=== PATIENT | male | born 1950 | race Caucasian/White ===

== ENCOUNTER → 2016-06-13 | Outpatient (CLI) | payer MEDICARE, OTHER ==
[~2016-06-13] MED LIST: CANA300T PO; CHOL200016 PO; DSS100 PO; GABA-531 PO; GUAI600T35 PO; HYDR25TA PO; INSLAN SQ; INSNOV SQ; LISI40TA4 PO; METF10002 PO; SIMV-261 PO; SITA100 PO; TRAM50TA4 PO; VALS160T2 PO
[2016-06-13 12:35] LABS: ALBUMIN 3.9 g/dL (3.4-5.0); BILIRUBIN,TOTAL 0.5 mg/dL (0.1-1.0); TOTAL PROTEIN, SERUM 7.5 g/dL (6.4-8.2)
[2016-06-13 12:42] LABS: BILIRUBIN,DIRECT 0.1 mg/dL (0.00-0.20)
[2016-06-14 13:15] LABS: HEPATITIS Bs ANTIGEN SCREEN P Negative (Negative); HEPATITIS C AB SCREEN <0.1 s/co ratio (0.0-0.9)
== END | disposition home or self-care (01) ==
LOC: LABPV 09:04
PROVIDERS: ATTEND Family Medicine
DX: R94.5 Abnormal results of liver function studies (principal)
CPT/HCPCS: 80074

== ENCOUNTER → 2016-06-19 | Outpatient (CLI) | payer MEDICARE, OTHER | END | disposition home or self-care (01) | LOC: RADMN 12:38 | PROVIDERS: ATTEND Family Medicine | DX: I67.2 Cerebral atherosclerosis (principal); J32.8 Other chronic sinusitis; I65.29 Occlusion and stenosis of unspecified carotid artery | CPT/HCPCS: 70450 ==

== ENCOUNTER 2016-07-15 11:54 | Emergency (ER) | payer MEDICARE, OTHER ==
[~2016-07-15] VITALS: Ht 167.6 cm; Wt 99.1 kg
[~2016-07-15 11:54] MED LIST changes: -GABA-531 PO; -INSNOV SQ; -SIMV-261 PO; +SIMV40 PO; -VALS160T2 PO
[2016-07-15 12:07] LABS: GLUCOSE,POINT OF CARE 85 MG/DL (70-110)
[2016-07-15 12:32] LABS: APPEARANCE,URINE CLEAR (CLEAR); GLUCOSE, URINE (UA) >=1000 mg/dL (NEGATIVE); KETONES,URINE NEGATIVE (NEGATIVE); LEUKOCYTE ESTERASE ,URINE NEGATIVE (NEGATIVE); OCCULT BLOOD,URINE NEGATIVE (NEGATIVE); PH,URINE 6.5 (5.0-8.0); PROTEIN,URINE NEGATIVE (NEGATIVE)
[2016-07-15 12:36] LABS: ADD UA MICROSCOPIC YES
[2016-07-15 12:39] LABS: BASOPHILS % (AUTO) 0.4 % (0.0-2.0); EOSINOPHILS % (AUTO) 5.3 % (1.0-6.0); HEMATOCRIT 51.8 % (41-53); HEMOGLOBIN 17.1 g/dL (13.5-17.5); LYMPHOCYTES # (AUTO) 1.4 K/uL (1.0-4.8); LYMPHOCYTES % (AUTO) 19.8 % (22.0-44.0); MEAN CORPUSCULAR HEMOGLOBIN 29.3 pg (26.0-34.0); MEAN CORPUSCULAR VOLUME 89 fL (80-100); MONOCYTES # (AUTO) 0.7 K/uL (0.1-1.0); NEUTROPHILS # (AUTO) 4.4 K/uL (1.8-7.7); NEUTROPHILS % (AUTO) 64.5 % (40.0-70.0); PLATELET COUNT (AUTO) 227 K/uL (150-450); RED BLOOD CELL COUNT(AUTO) 5.83 MIL/uL (4.50-5.90); RED CELL DISTRIBUTION WIDTH 14.4 % (11.5-14.5); WHITE BLOOD COUNT (AUTO) 6.8 K/uL (4.5-11.0)
[2016-07-15 12:40] LABS: RBC,URINE None Seen /HPF (0-2); SQUAMOUS EPITHELIAL CELL,UR Rare /LPF (None Seen); WBC,URINE None Seen /HPF (0-5)
[2016-07-15] MEDS ORDERED: ONDANSETRON HCL 4 MG/2 ML VIAL IVP ONE (12:45)
[2016-07-15] MEDS ORDERED: KETOROLAC TROMETHAMINE 30 MG/ML VIAL IVP ONE (12:45)
[2016-07-15 12:47] LABS: CALCIUM, TOTAL 8.9 mg/dL (8.8-10.5); CREATININE 1.5 mg/dL (0.60-1.30); POTASSIUM 4.2 mmol/L (3.5-5.1)
[2016-07-15 12:53] LABS: ALBUMIN 4.2 g/dL (3.4-5.0); BILIRUBIN,TOTAL 1.1 mg/dL (0.1-1.0)
[2016-07-15 15:06] VITALS: BP 149/76
== END 2016-07-15 15:20 | disposition home or self-care (01) ==
LOC: EMS 11:56
DX: K80.70 Calculus of gallbladder and bile duct without cholecystitis without obstruction (principal); E11.9 Type 2 diabetes mellitus without complications; E78.00 Pure hypercholesterolemia, unspecified; I11.9 Hypertensive heart disease without heart failure; I48.91 Unspecified atrial fibrillation; J45.909 Unspecified asthma, uncomplicated; Z79.4 Long term (current) use of insulin
CPT/HCPCS: 36415; 74022; 76700; 80053; 81001; 82962; 83690; 84484; 85025; 93005; 96374; 96375; 99285; J1885; J2405

== ENCOUNTER 2016-08-29 05:15 | Day surgery (SDC) | payer MEDICARE, OTHER ==
[~2016-08-29] VITALS: Ht 165.1 cm; Wt 95.0 kg
[~2016-08-29 05:15] MED LIST changes: -DSS100 PO; +GABA-531 PO; -GUAI600T35 PO; +INSNOV SQ; -LISI40TA4 PO; -METF10002 PO; +VALS160T2 PO
[2016-08-29] MEDS ORDERED: RINGERS SOLUTION,LACTATED 1,000 ML IV ONE ×2 (05:46→06:00)
[2016-08-29 06:36] LABS: GLUCOSE,POINT OF CARE 139 MG/DL (70-110)
[2016-08-29] MEDS ORDERED: SODIUM CL IRRIG SOLN BAG 3,000 ML IRRIG ONE (07:06)
[2016-08-29] MEDS ORDERED: BUPIVACAINE HCL/PF 0.25% 30 ML VIAL ONE (07:06)
[2016-08-29] MEDS ORDERED: GUM MASTIC/STORAX/MSAL/ALCOHOL LIQUID 0.67 ML VIAL TP ONE (07:06)
[2016-08-29] MEDS ORDERED: CefoTEtan DISOD 1 GM/DEXTROSE 50 ML IV ONE (07:30)
[2016-08-29] MEDS: BUPIVACAINE 0.25%/EPI 1:200,000/PF 10 ML VIAL ONE ×2 (08:45→09:02)
[2016-08-29] MEDS ORDERED: FentaNYL CITRATE-PF 100 MCG/2 ML VIAL IVP PRN (09:00)
[2016-08-29] MEDS ORDERED: MEPERIDINE-PF 25 MG/ML SYRINGE IVP PRN (09:00)
[2016-08-29] MEDS ORDERED: SODIUM CHLORIDE 0.9% 1,000 ML IV ONE (09:21)
[2016-08-29] MEDS: HYDROmorphone 2 MG/ML SYRINGE IVP PRN ×4 (09:25→10:10)
[2016-08-29] MEDS ORDERED: HYDROmorphone 2 MG/ML SYRINGE ONE (09:30)
[2016-08-29] MEDS ORDERED: ONDANSETRON HCL 4 MG/2 ML VIAL IVP ONE (11:34)
[2016-08-29] MEDS ORDERED: PROPOFOL 1% 20 ML VIAL IVP ONE (11:34)
[2016-08-29] MEDS ORDERED: GLYCOPYRROLATE 0.2 MG/ML VIAL IM ONE (11:34)
[2016-08-29] MEDS ORDERED: FentaNYL CITRATE-PF 100 MCG/2 ML VIAL IVP ONE (11:34)
[2016-08-29] MEDS ORDERED: MIDAZOLAM HCL 2 MG/2 ML VIAL IVP ONE (11:34)
[2016-08-29] MEDS ORDERED: LIDOCAINE HCL/PF 2% 5 ML VIAL IM ONE (11:34)
[2016-08-29] MEDS ORDERED: METOCLOPRAMIDE HCL 5 MG/ML 2 ML VIAL IVP ONE (11:34)
[2016-08-29] MEDS ORDERED: ROCURONIUM BROMIDE 10 MG/ML 5 ML VIAL IVP ONE (11:34)
[2016-08-29] MEDS ORDERED: 0.9% SODIUM CHLORIDE 10 ML VIAL IVP ONE (11:34)
[2016-08-29] MEDS ORDERED: OXYGEN THERAPY IH SCH (20:00)
== END 2016-08-29 11:35 | disposition home or self-care (01) ==
LOC: SDS 05:15 → UNDOADMIN 05:15 → 6N 05:15 → EDSTATUS 07:30 → UNDODISIN 11:35 → SDS 11:35
PROVIDERS: ATTEND Surgery
DX: K80.12 Calculus of gallbladder with acute and chronic cholecystitis without obstruction (principal); I10 Essential (primary) hypertension; E11.9 Type 2 diabetes mellitus without complications; E78.00 Pure hypercholesterolemia, unspecified; K25.9 Gastric ulcer, unspecified as acute or chronic, without hemorrhage or perforation; K76.9 Liver disease, unspecified; E66.9 Obesity, unspecified; Z98.52 Vasectomy status; Z82.49 Family history of ischemic heart disease and other diseases of the circulatory system
CPT/HCPCS: 47562; 82962; 88304; J1170; J2250; J2405; J2704; J2765; J3010; J3490 ×5; J7030; J7120

== ENCOUNTER 2016-12-23 20:10 | Inpatient (IN) | payer MEDICARE, OTHER ==
[~2016-12-23] VITALS: Ht 167.6 cm; Wt 90.8 kg
[~2016-12-23 20:10] MED LIST changes: +SIMV-261 PO; -SIMV40 PO
[2016-12-23 20:33] LABS: APPEARANCE,URINE CLEAR (CLEAR); GLUCOSE, URINE (UA) >=1000 mg/dL (NEGATIVE); KETONES,URINE TRACE mg/dL (NEGATIVE); LEUKOCYTE ESTERASE ,URINE NEGATIVE (NEGATIVE); OCCULT BLOOD,URINE NEGATIVE (NEGATIVE); PH,URINE 7.5 (5.0-8.0); PROTEIN,URINE TRACE (NEGATIVE)
[2016-12-23 20:37] LABS: GLUCOSE,POINT OF CARE 98 MG/DL (70-110)
[2016-12-23 20:39] LABS: ADD UA MICROSCOPIC YES
[2016-12-23 20:43] LABS: RBC,URINE 0-2 /HPF (0-2); SQUAMOUS EPITHELIAL CELL,UR Rare /LPF (None Seen); WBC,URINE 0-2 /HPF (0-5)
[2016-12-23 20:48] LABS: BASOPHILS # (AUTO) 0.01 K/uL (0.00-0.20); BASOPHILS % (AUTO) 0.1 % (0.0-2.0); EOSINOPHILS # (AUTO) 0.23 K/uL (0.00-0.70); EOSINOPHILS % (AUTO) 2.74 % (1.0-6.0); HEMATOCRIT 42.6 % (41-53); HEMOGLOBIN 14.5 g/dL (13.5-17.5); LYMPHOCYTES # (AUTO) 0.8 K/uL (1.0-4.8); LYMPHOCYTES % (AUTO) 9.4 % (22.0-44.0); MEAN CORPUSCULAR HEMOGLOBIN 30.3 pg (26.0-34.0); MEAN CORPUSCULAR HGB CONC 34.1 G/dL (31.0-37.0); MEAN CORPUSCULAR VOLUME 89 fL (80-100); MONOCYTES # (AUTO) 0.8 K/uL (0.1-1.0); MONOCYTES % (AUTO) 9.7 % (2.0-9.0); NEUTROPHILS # (AUTO) 6.5 K/uL (1.8-7.7); NEUTROPHILS % (AUTO) 78.1 % (40.0-70.0); PLATELET COUNT (AUTO) 202 K/uL (150-450); RED BLOOD CELL COUNT(AUTO) 4.79 MIL/uL (4.50-5.90); RED CELL DISTRIBUTION WIDTH 15.7 % (11.5-14.5); WHITE BLOOD COUNT (AUTO) 8.4 K/uL (4.5-11.0)
[2016-12-23 20:58] LABS: CREATININE 1.39 mg/dL (0.60-1.30); POTASSIUM 4.1 mmol/L (3.5-5.1)
[2016-12-23 21:04] LABS: ALBUMIN 3.4 g/dL (3.4-5.0); BILIRUBIN,TOTAL 8.7 mg/dL (0.1-1.0); TOTAL PROTEIN, SERUM 6.9 g/dL (6.4-8.2)
[2016-12-23] MEDS ORDERED: MORPHINE SULFATE 4 MG/ML SYRINGE IVP ONE (21:15)
[2016-12-23] MEDS ORDERED: ONDANSETRON HCL 4 MG/2 ML VIAL IVP ONE (21:15)
[2016-12-23 21:16] LABS: INR 1.1 (0.9-1.1); PROTHROMBIN TIME 11.4 SEC (9.4-11.6)
[2016-12-23] MEDS ORDERED: DONNATAL/LIDOCAINE/MAALOX 55 ML BOTTLE PO ONE (23:00)
[2016-12-24 01:38] VITALS: BP 132/68
[2016-12-24] MEDS ORDERED: ZOLPIDEM TARTRATE 5 MG TABLET PO PRN (02:00)
[2016-12-24] MEDS ORDERED: MAGNESIUM HYDROXIDE SUSPENSION 30 ML UDCUP PO PRN (02:00)
[2016-12-24] MEDS ORDERED: ONDANSETRON HCL 4 MG/2 ML VIAL IVP PRN (02:00)
[2016-12-24] MEDS ORDERED: MORPHINE SULFATE 4 MG/ML SYRINGE IVP PRN (02:00)
[2016-12-24] MEDS ORDERED: DEXTROSE 50%-WATER 25 GM/50 ML SYRINGE IVP PRN (02:00)
[2016-12-24] MEDS ORDERED: MORPHINE SULFATE 2 MG/ML SYRINGE IVP PRN (02:01)
[2016-12-24 04:08] VITALS: BP 128/70
[2016-12-24 04:14] LABS: BASOPHILS # (AUTO) 0.02 K/uL (0.00-0.20); BASOPHILS % (AUTO) 0.3 % (0.0-2.0); EOSINOPHILS # (AUTO) 0.19 K/uL (0.00-0.70); EOSINOPHILS % (AUTO) 2.23 % (1.0-6.0); HEMATOCRIT 41.6 % (41-53); LYMPHOCYTES # (AUTO) 0.9 K/uL (1.0-4.8); LYMPHOCYTES % (AUTO) 10.2 % (22.0-44.0); MEAN CORPUSCULAR HEMOGLOBIN 30.6 pg (26.0-34.0); MEAN CORPUSCULAR HGB CONC 33.5 G/dL (31.0-37.0); MEAN CORPUSCULAR VOLUME 91 fL (80-100); MONOCYTES # (AUTO) 0.8 K/uL (0.1-1.0); MONOCYTES % (AUTO) 9.1 % (2.0-9.0); NEUTROPHILS # (AUTO) 6.8 K/uL (1.8-7.7); NEUTROPHILS % (AUTO) 78.2 % (40.0-70.0); PLATELET COUNT (AUTO) 191 K/uL (150-450); RED BLOOD CELL COUNT(AUTO) 4.55 MIL/uL (4.50-5.90); RED CELL DISTRIBUTION WIDTH 15.7 % (11.5-14.5); WHITE BLOOD COUNT (AUTO) 8.7 K/uL (4.5-11.0)
[2016-12-24 04:23] LABS: INR 1.1 (0.9-1.1); PROTHROMBIN TIME 11.5 SEC (9.4-11.6)
[2016-12-24 04:27] LABS: ALBUMIN 3.1 g/dL (3.4-5.0); BILIRUBIN,TOTAL 8.3 mg/dL (0.1-1.0); CALCIUM, TOTAL 8.6 mg/dL (8.8-10.5); CREATININE 1.36 mg/dL (0.60-1.30); POTASSIUM 4.1 mmol/L (3.5-5.1); TOTAL PROTEIN, SERUM 6.3 g/dL (6.4-8.2)
[2016-12-24] MEDS: DEXTROSE 5%-0.9% SODIUM CHL 1,000 ML IV SCH ×3 (05:39→14:35)
[2016-12-24 05:52] LABS: GLUCOSE,POINT OF CARE 128 MG/DL (70-110)
[2016-12-24 07:25] VITALS: BP 106/61
[2016-12-24] MEDS: HYDROCHLOROTHIAZIDE 25 MG TABLET PO SCH (08:10)
[2016-12-24] MEDS: PANTOPRAZOLE SODIUM 40 MG/VIAL IVP SCH (08:10)
[2016-12-24] MEDS: GABAPENTIN 300 MG CAPSULE PO SCH ×2 (08:10→20:03)
[2016-12-24] MEDS: VALSARTAN 160 MG TABLET PO SCH ×2 (08:10→20:03)
[2016-12-24 11:32] VITALS: BP 114/64
[2016-12-24 11:58] LABS: GLUCOSE,POINT OF CARE 115 MG/DL (70-110)
[2016-12-24 15:48] VITALS: BP 113/64
[2016-12-24 17:17] LABS: GLUCOSE,POINT OF CARE 108 MG/DL (70-110)
[2016-12-24 20:00] VITALS: BP 113/70
[2016-12-24] MEDS: INSULIN ASPART 100 UNITS/ML SQ PRN (20:03)
[2016-12-24 21:32] LABS: GLUCOSE COMMENT 1 Received Meds; GLUCOSE,POINT OF CARE 157 MG/DL (70-110)
[2016-12-25] VITALS: BP 95/53
[2016-12-25 04:00] VITALS: BP 99/51
[2016-12-25] MEDS: INSULIN ASPART 100 UNITS/ML SQ PRN ×2 (05:36→11:46)
[2016-12-25 05:59] LABS: GLUCOSE COMMENT 1 Repeated; GLUCOSE COMMENT 2 Received Meds; GLUCOSE,POINT OF CARE 139 MG/DL (70-110)
[2016-12-25 07:14] VITALS: BP 122/70
[2016-12-25] MEDS: PANTOPRAZOLE SODIUM 40 MG/VIAL IVP SCH (08:12)
[2016-12-25] MEDS: GABAPENTIN 300 MG CAPSULE PO SCH (08:12)
[2016-12-25] MEDS: VALSARTAN 160 MG TABLET PO SCH (08:12)
[2016-12-25] MEDS: DEXTROSE 5%-0.9% SODIUM CHL 1,000 ML IV SCH (08:13)
[2016-12-25] MEDS: HYDROCHLOROTHIAZIDE 25 MG TABLET PO SCH (08:13)
[2016-12-25 09:22] LABS: HEPATITIS Bs ANTIGEN SCREEN P Negative (Negative); HEPATITIS C AB SCREEN <0.1 s/co ratio (0.0-0.9)
[2016-12-25 11:29] VITALS: BP 117/63
[2016-12-25 11:44] LABS: BASOPHILS # (AUTO) 0.02 K/uL (0.00-0.20); BASOPHILS % (AUTO) 0.4 % (0.0-2.0); EOSINOPHILS # (AUTO) 0.31 K/uL (0.00-0.70); EOSINOPHILS % (AUTO) 6.18 % (1.0-6.0); HEMATOCRIT 41.3 % (41-53); HEMOGLOBIN 14.3 g/dL (13.5-17.5); LYMPHOCYTES % (AUTO) 19.5 % (22.0-44.0); MEAN CORPUSCULAR HEMOGLOBIN 30.7 pg (26.0-34.0); MEAN CORPUSCULAR HGB CONC 34.6 G/dL (31.0-37.0); MEAN CORPUSCULAR VOLUME 89 fL (80-100); MONOCYTES # (AUTO) 0.6 K/uL (0.1-1.0); MONOCYTES % (AUTO) 11.3 % (2.0-9.0); NEUTROPHILS # (AUTO) 3.1 K/uL (1.8-7.7); NEUTROPHILS % (AUTO) 62.7 % (40.0-70.0); PLATELET COUNT (AUTO) 225 K/uL (150-450); RED BLOOD CELL COUNT(AUTO) 4.64 MIL/uL (4.50-5.90); RED CELL DISTRIBUTION WIDTH 15.6 % (11.5-14.5)
[2016-12-25 11:56] LABS: CALCIUM, TOTAL 8.9 mg/dL (8.8-10.5); CREATININE 1.4 mg/dL (0.60-1.30); POTASSIUM 4.2 mmol/L (3.5-5.1)
[2016-12-25 12:02] LABS: TOTAL PROTEIN, SERUM 6.7 g/dL (6.4-8.2)
[2016-12-25 12:17] LABS: GLUCOSE COMMENT 1 Received Meds; GLUCOSE,POINT OF CARE 193 MG/DL (70-110)
[2016-12-26] MEDS ORDERED: GADOBUTROL 1 MMOL/ML 10 ML VIAL IVP ONE (09:08)
== END 2016-12-25 15:00 | disposition home or self-care (01) | DRG 442 ==
LOC: EMS 20:12 → 6N 23:14
PROVIDERS: ADMIT Hospitalist; ATTEND Hospitalist
DX: B17.9 Acute viral hepatitis, unspecified (principal); R17 Unspecified jaundice; I48.91 Unspecified atrial fibrillation; I10 Essential (primary) hypertension; E11.9 Type 2 diabetes mellitus without complications; E78.00 Pure hypercholesterolemia, unspecified; E66.9 Obesity, unspecified; J45.909 Unspecified asthma, uncomplicated; Z79.4 Long term (current) use of insulin; Z82.49 Family history of ischemic heart disease and other diseases of the circulatory system; Z83.3 Family history of diabetes mellitus; Z90.49 Acquired absence of other specified parts of digestive tract; F41.9 Anxiety disorder, unspecified; Z68.32 Body mass index [BMI] 32.0-32.9, adult
CPT/HCPCS: 76700; 80074; 82248; 82962; 83036; 93005; 96374; 96375; 99285; A9585; C9113; J2270; J2405; J7042

== ENCOUNTER → 2016-12-26 | Outpatient (CLI) | payer MEDICARE, OTHER ==
[~2016-12-26] MED LIST changes: -SIMV-261 PO
== END | disposition home or self-care (01) ==
LOC: RADMN 08:47
PROVIDERS: ATTEND Family Medicine
DX: K80.50 Calculus of bile duct without cholangitis or cholecystitis without obstruction (principal); K83.8 Other specified diseases of biliary tract; Z90.49 Acquired absence of other specified parts of digestive tract
CPT/HCPCS: 74183

== ENCOUNTER 2016-12-31 14:05 | Emergency (ER) | payer MEDICARE, OTHER ==
[~2016-12-31] VITALS: Ht 167.6 cm; Wt 90.0 kg
[2016-12-31 14:17] LABS: GLUCOSE,POINT OF CARE 176 MG/DL (70-110)
[2016-12-31 14:49] LABS: BASOPHILS # (AUTO) 0.01 K/uL (0.00-0.20); BASOPHILS % (AUTO) 0.1 % (0.0-2.0); EOSINOPHILS # (AUTO) 0.28 K/uL (0.00-0.70); EOSINOPHILS % (AUTO) 3.05 % (1.0-6.0); HEMATOCRIT 45.4 % (41-53); HEMOGLOBIN 15.4 g/dL (13.5-17.5); LYMPHOCYTES # (AUTO) 0.9 K/uL (1.0-4.8); MEAN CORPUSCULAR HEMOGLOBIN 30.6 pg (26.0-34.0); MEAN CORPUSCULAR HGB CONC 33.8 G/dL (31.0-37.0); MEAN CORPUSCULAR VOLUME 91 fL (80-100); MONOCYTES # (AUTO) 0.9 K/uL (0.1-1.0); MONOCYTES % (AUTO) 9.6 % (2.0-9.0); NEUTROPHILS % (AUTO) 77.2 % (40.0-70.0); PLATELET COUNT (AUTO) 330 K/uL (150-450); RED BLOOD CELL COUNT(AUTO) 5.02 MIL/uL (4.50-5.90); RED CELL DISTRIBUTION WIDTH 15.7 % (11.5-14.5); WHITE BLOOD COUNT (AUTO) 9.1 K/uL (4.5-11.0)
[2016-12-31 14:59] LABS: ANION GAP 6 mmol/L (8-16); CARBON DIOXIDE 29 mmol/L (22-29); CHLORIDE 103 mmol/L (98-107); CREATININE 1.21 mg/dL (0.60-1.30); GLOMERULAR FILTR. RATE CALC 60 mL/min (>60); SODIUM SERUM 138 mmol/L (136-145); UREA NITROGEN, BLOOD 20 mg/dL (7-18)
[2016-12-31] MEDS ORDERED: MORPHINE SULFATE 4 MG/ML SYRINGE IVP ONE (15:00)
[2016-12-31] MEDS ORDERED: ONDANSETRON HCL 4 MG/2 ML VIAL IVP ONE (15:00)
[2016-12-31 15:01] LABS: PROTHROMBIN TIME 10.6 SEC (9.4-11.6)
[2016-12-31 15:12] LABS: B-TYPE NATRIURETIC PEPTIDE 35 pg/mL (0-100)
[2016-12-31 15:24] LABS: ALANINE AMINOTRANSFERASE 461 U/L (12-78); ALBUMIN 3.5 g/dL (3.4-5.0); ASPARTATE AMINOTRANSFERASE 267 U/L (15-37); BILIRUBIN,TOTAL 7.5 mg/dL (0.1-1.0); CREATINE KINASE MB 0.8 ng/mL (0-5); CREATINE KINASE, TOTAL 82 U/L (39-308); TOTAL PROTEIN, SERUM 7.5 g/dL (6.4-8.2)
[2016-12-31] MEDS ORDERED: HYDROmorphone 2 MG/ML SYRINGE IVP ONE (16:30)
[2016-12-31 18:49] VITALS: BP 149/73
== END 2016-12-31 19:21 | disposition short-term general hospital (02) ==
LOC: EMS 14:07
DX: K80.50 Calculus of bile duct without cholangitis or cholecystitis without obstruction (principal); I48.91 Unspecified atrial fibrillation; J45.909 Unspecified asthma, uncomplicated; E11.9 Type 2 diabetes mellitus without complications; E78.00 Pure hypercholesterolemia, unspecified; I11.9 Hypertensive heart disease without heart failure; Z79.4 Long term (current) use of insulin
CPT/HCPCS: 36415; 71010; 80053; 82550; 82553; 82962; 83880; 84484; 85025; 85610; 85730; 93005; 96374; 96375; 99285; J1170; J2270; J2405

== ENCOUNTER → 2017-04-30 | Outpatient (CLI) | payer MEDICARE, MEDICAID | END | disposition home or self-care (01) | LOC: RADPV 08:58 | PROVIDERS: ATTEND Family Medicine | DX: M43.17 Spondylolisthesis, lumbosacral region (principal); M25.552 Pain in left hip; M25.78 Osteophyte, vertebrae | CPT/HCPCS: 72100; 73503 ==

== ENCOUNTER → 2017-10-15 | Outpatient (CLI) | payer MEDICARE, OTHER | END | disposition home or self-care (01) | LOC: RADPV 11:14 | PROVIDERS: ATTEND Family Medicine | DX: M43.16 Spondylolisthesis, lumbar region (principal); M51.37 Other intervertebral disc degeneration, lumbosacral region | CPT/HCPCS: 72100 ==

== ENCOUNTER 2018-02-12 08:56 | Emergency (ER) | payer MEDICARE, OTHER ==
[~2018-02-12] VITALS: Ht 152.4 cm; Wt 90.9 kg
[~2018-02-12 08:56] MED LIST changes: -CHOL200016 PO; +CHOL200059 PO
[2018-02-12 09:15] LABS: GLUCOSE,POINT OF CARE 157 MG/DL (70-110)
[2018-02-12 09:59] VITALS: BP 127/87
[2018-02-12] MEDS ORDERED: IBUPROFEN 800 MG TABLET PO ONE (10:30)
== END 2018-02-12 10:40 | disposition home or self-care (01) ==
LOC: EMS 08:58
DX: L02.212 Cutaneous abscess of back [any part, except buttock and flank] (principal); I10 Essential (primary) hypertension; E11.9 Type 2 diabetes mellitus without complications; E78.00 Pure hypercholesterolemia, unspecified; J45.909 Unspecified asthma, uncomplicated; I48.91 Unspecified atrial fibrillation; Z79.4 Long term (current) use of insulin

== ENCOUNTER → 2018-06-17 | Outpatient (CLI) | payer MEDICARE, OTHER ==
[~2018-06-17] VITALS: Ht 162.6 cm; Wt 92.0 kg
[~2018-06-17] MED LIST changes: +ASPI-1182 PO; +ESCI10TA PO; +FAMO20 PO; +OMEP20 PO
[2018-06-17 10:56] VITALS: BP 100/75
== END | disposition home or self-care (01) ==
LOC: SRCNTR 10:31
PROVIDERS: ATTEND Internal Medicine Cardiovascular Disease
DX: E78.5 Hyperlipidemia, unspecified (principal); E11.9 Type 2 diabetes mellitus without complications; I49.9 Cardiac arrhythmia, unspecified; I10 Essential (primary) hypertension
CPT/HCPCS: 93005; G0463

== ENCOUNTER 2019-03-26 08:26 | Emergency (ER) | payer BC, OTHER ==
[~2019-03-26] VITALS: Ht 165.1 cm; Wt 92.7 kg
[2019-03-26 08:49] LABS: GLUCOSE,POINT OF CARE 190 MG/DL (70-110)
[2019-03-26] MEDS ORDERED: MORPHINE SULFATE 4 MG/ML SYRINGE IM ONE (09:15)
[2019-03-26] MEDS ORDERED: ONDANSETRON HCL 4 MG/2 ML VIAL IM ONE (09:15)
[2019-03-26] MEDS ORDERED: GABAPENTIN 300 MG CAPSULE PO ONE (09:15)
[2019-03-26 10:55] VITALS: BP 136/66
== END 2019-03-26 11:03 | disposition home or self-care (01) ==
LOC: EMS 08:28
DX: M54.5 Low back pain (principal); E11.9 Type 2 diabetes mellitus without complications; I48.91 Unspecified atrial fibrillation; F41.9 Anxiety disorder, unspecified; J45.909 Unspecified asthma, uncomplicated; I11.9 Hypertensive heart disease without heart failure; E78.00 Pure hypercholesterolemia, unspecified; Z79.84 Long term (current) use of oral hypoglycemic drugs; Z79.899 Other long term (current) drug therapy
CPT/HCPCS: 72100; 82962; 96372; 99283; J2270; J2405

== ENCOUNTER 2021-09-22 00:58 | Emergency (ER) | payer OTHER ==
[~2021-09-22] VITALS: Ht 167.6 cm; Wt 100.0 kg
[~2021-09-22 00:58] MED LIST changes: -ASPI-1182 PO; +ASPI-1444 PO; +CHOL200016 PO; -CHOL200059 PO; +ESCI-8 PO; -ESCI10TA PO; +GABA-1181 PO; -GABA-531 PO; +HYDR-4870 PO; -HYDR25TA PO
[2021-09-22 01:01] VITALS: BP 161/102
[2021-09-22] MEDS ORDERED: ACETAMINOPHEN/CODEINE 300-30 MG TABLET PO ONE (01:30)
[2021-09-22] MEDS ORDERED: DOXYCYCLINE HYCLATE 100 MG TABLET PO ONE (01:30)
[2021-09-22] MEDS ORDERED: CEPHALEXIN MONOHYDRATE 500 MG CAPSULE PO ONE (01:30)
[2021-09-22] MEDS ORDERED: CEPH-558 PO (01:36)
[2021-09-22] MEDS ORDERED: ACET-2080 PO (01:36)
[2021-09-22] MEDS ORDERED: DOXY-354 PO (01:36)
== END 2021-09-22 02:05 | disposition home or self-care (01) ==
LOC: EMS 00:59
DX: L72.3 Sebaceous cyst (principal); E11.65 Type 2 diabetes mellitus with hyperglycemia; E78.00 Pure hypercholesterolemia, unspecified; F41.9 Anxiety disorder, unspecified; J45.909 Unspecified asthma, uncomplicated; I10 Essential (primary) hypertension; Z90.49 Acquired absence of other specified parts of digestive tract
CPT/HCPCS: 82962; 99284

== ENCOUNTER 2024-08-25 01:53 | Emergency (ER) | payer OTHER ==
[~2024-08-25] VITALS: Ht 165.1 cm; Wt 90.9 kg
[~2024-08-25 01:53] MED LIST changes: +ACET-2080 PO; +CEPH-558 PO; +DOXY-354 PO; -HYDR-4870 PO; +HYDR25TA2 PO; +OMEP-148 PO; -OMEP20 PO
[2024-08-25 02:07] VITALS: TEMP 97.7
[2024-08-25 02:33] VITALS: BP 135/71; PULSE 96; RESP 17; O2SAT 98
[2024-08-25 02:34] LABS: BASOPHILS % (AUTO) 0.8 % (0.0-2.0); EOSINOPHILS % (AUTO) 4.1 % (1.0-6.0); HEMATOCRIT 49.3 % (41-53); HEMOGLOBIN 16.5 g/dL (13.5-17.5); LYMPHOCYTES # (AUTO) 1.4 K/uL (1.0-4.8); LYMPHOCYTES % (AUTO) 24.9 % (22.0-44.0); MEAN CORPUSCULAR HEMOGLOBIN 29.5 pg (26.0-34.0); MEAN CORPUSCULAR HGB CONC 33.5 G/dL (31.0-37.0); MEAN CORPUSCULAR VOLUME 88 fL (80-100); MONOCYTES # (AUTO) 0.6 K/uL (0.1-1.0); MONOCYTES % (AUTO) 10.8 % (2.0-9.0); NEUTROPHILS # (AUTO) 3.4 K/uL (1.8-7.7); NEUTROPHILS % (AUTO) 59.4 % (40.0-70.0); PLATELET COUNT (AUTO) 206 K/uL (150-450); RED BLOOD CELL COUNT(AUTO) 5.61 MIL/uL (4.50-5.90); RED CELL DISTRIBUTION WIDTH 13.7 % (11.5-14.5); WHITE BLOOD COUNT (AUTO) 5.8 K/uL (4.5-11.0)
[2024-08-25 02:46] LABS: ANION GAP 7 mmol/L (8-16); CARBON DIOXIDE 28 mmol/L (22-29); CHLORIDE 107 mmol/L (98-107); CREATININE 1.27 mg/dL (0.60-1.30); GLOMERULAR FILTR. RATE CALC 55 mL/min (>60); GLUCOSE,RANDOM 134 mg/dL (70-110); SODIUM SERUM 142 mmol/L (136-145); UREA NITROGEN, BLOOD 20 mg/dL (7-18)
[2024-08-25 02:51] LABS: GLUCOMETER DEV NAME(LOC) ERT.6; GLUCOSE,POINT OF CARE 146 MG/DL (70-110)
[2024-08-25] MEDS: OMEPRAZOLE 20 MG CAPSULE PO ONE (02:53)
[2024-08-25] MEDS: KETOROLAC TROMETHAMINE 60 MG/2 ML VIAL IM ONE (02:53)
[2024-08-25] MEDS: MAG HYDROX/ALUMINUM HYD/SIMETH ES 30 ML SUSPENSION UDCUP PO ONE (02:53)
[2024-08-25 02:55] LABS: TROPONIN I-HIGH SENSITIVITY 45 ng/L (<76)
[2024-08-25 02:57] LABS: B-TYPE NATRIURETIC PEPTIDE < 5 pg/mL (0-100)
[2024-08-25] MEDS ORDERED: IBUP-1554 PO (03:10)
[2024-08-25] MEDS ORDERED: OMEP-148 PO (03:10)
[2024-08-25] MEDS ORDERED: ACET-66 PO (03:10)
[2024-08-25] MEDS ORDERED: MAG30ORA11 PO (03:10)
[2024-08-25 03:21] LABS: ALBUMIN 3.7 g/dL (3.4-5.0); BILIRUBIN,DIRECT 0.2 mg/dL (0.00-0.20); BILIRUBIN,TOTAL 0.7 mg/dL (0.1-1.0); TOTAL PROTEIN, SERUM 6.8 g/dL (6.4-8.2)
[2024-08-25] MEDS ORDERED: POLY119P3 PO (03:25)
[2024-08-25 04:25] LABS: APPEARANCE,URINE CLEAR (CLEAR); BILIRUBIN,URINE NEGATIVE (NEGATIVE); COLOR,URINE LIGHT YELLOW (YELLOW); GLUCOSE, URINE (UA) >=1000 mg/dL (NEGATIVE); KETONES,URINE NEGATIVE (NEGATIVE); LEUKOCYTE ESTERASE ,URINE NEGATIVE (NEGATIVE); NITRATE,URINE NEGATIVE (NEGATIVE); OCCULT BLOOD,URINE NEGATIVE (NEGATIVE); PH,URINE 5.5 (5.0-8.0); PROTEIN,URINE NEGATIVE (NEGATIVE); SPECIFIC GRAVITIY, URINE 1.031 (1.003-1.030); UROBILINOGEN,URINE <=1.0 mg/dL (<=1.0)
[2024-08-25 04:43] LABS: BACTERIA,URINE Rare /HPF (None Seen); RBC,URINE None Seen /HPF (0-2); WBC,URINE 0-2 /HPF (0-5)
== END 2024-08-25 04:22 | disposition home or self-care (01) ==
LOC: EMS 01:57
DX: K59.00 Constipation, unspecified (principal); R10.84 Generalized abdominal pain; R39.11 Hesitancy of micturition; R53.1 Weakness; R06.02 Shortness of breath; E11.9 Type 2 diabetes mellitus without complications; I10 Essential (primary) hypertension; E78.00 Pure hypercholesterolemia, unspecified; J45.909 Unspecified asthma, uncomplicated; Z79.4 Long term (current) use of insulin; Z79.82 Long term (current) use of aspirin; Z90.49 Acquired absence of other specified parts of digestive tract; Z79.899 Other long term (current) drug therapy
CPT/HCPCS: 99285; 74176; 80048; 80076; 81001; 82962; 83690; 83880; 84484; 85025; 36415; 93005; 96372; J1885